=== PATIENT | male | born 1945 | race Caucasian/White ===

== ENCOUNTER → 2017-04-30 | Outpatient (CLI) | payer OTHER ==
[~2017-04-30] VITALS: Ht 182.9 cm; Wt 117.9 kg
[~2017-04-30] MED LIST: ADVAIR HFA 230M12 GM INH; CENTRUM SILVER1 EAC4 PO; GLUCOSAMINE CH1 EAC2 PO; LIPITOR 20 MG T20 M1 PO; LOVAZA1000 MG PO; NABUMETONE 750750 M1 PO
--- NOTE | ~2017-04-30 | S ---
[facility] [place] [address] SURGICAL PATH RPT PROCEDURE Name: THIEN SHETH Room #: REG [facility].#: [id number] Admission: 04/30/17 Date of : 45 Discharge: Report #: [id number] Path Case #: [id number] PATHOLOGY REPORT COLLECTION DATE: 04/30/2017 RECEIVED DATE: 04/30/2017 SUBMITTING PHYS: Dr. Freddie Ignacio OTHER PHYS: Dr. Destinee Lin SPECIMEN(S) RECEIVED: A.Proximal transverse polyp B.Rectal polyp * * * * * * * * * * * * FINAL DIAGNOSIS: A. Polyp, at proximal transverse colon, endoscopic biopsy: - Hyperplastic polyp. - Negative for dysplasia. B. Polyp, rectal polyp anal verge, endoscopic biopsy: - One fragment showing changes compatible with a hyperplastic polyp without dysplasia. - Second fragment showing non-specific reactive changes without dysplasia (please see comment). COMMENT: B: Examination shows reactive rare architecturally abnormal glands within the lamina propria associated with subtle inflammation as well as fibrosis within the lamina propria. There is focal muscularis mucosae present. These changes may represent mucosal prolapse, or a solitary rectal ulcer. Active ulceration is not identified. There is no dysplasia or malignancy present. (IUV:mgr; 05/01/2017) PATHOLOGIST: Bridgett Porras M.D. REPORT ELECTRONICALLY SIGNED BY: Bridgett Porras M.D. DATE/TIME: 05/01/2017 14:51 * * * * * * * * * * * * GROSS PATHOLOGY: A. Received in formalin labeled "Thien Sheth, polyp at proximal transverse colon," is a segment of hall soft tissue measuring 0.5 cm in maximum dimension. The specimen is submitted entirely in cassette A1. B. Received in formalin labeled "Thien Sheth, BX of rectal polyp anal verge," are 2 segments of hall soft tissue measuring 0.6 x 0.2 x 0.2 cm in aggregate dimensions and measuring 0.3 cm each in maximum [address] [place] [address] SURGICAL PATH RPT PROCEDURE Name: THIEN SHETH Room #: REG [facility].#: [id number] Admission: 04/30/17 Date of : 45 Discharge: Report #: [id number] Path Case #: [id number] dimension. The specimen is submitted entirely in cassette B1. (TSD; 04/30/2017) CLINICAL HISTORY: None provided INITIAL CPT CODE(S): A; 98260 B; 98565 Professional services performed by [facility] at [address], [place] [address] Technical services performed by [facility] at [address] [place] [address], [facility] [address] [address]. [facility] [address] [place] [address] PHONE: [phone] DIRECTOR: Golden Tucker M.D. * * * END OF REPORT * * *
--- NOTE | ~2017-04-30 | P ---
[facility] [place] [address] PROCEDURE REPORT Name: SHETHBANDAR MALDONADO Room #: REG [facility]#: [id number] Admission: 04/30/17 Attend Phys: Freddie Ignacio MD Discharge: Date of : 45 Report #: [id number] THIS REPORT FOR: //name// CC: Freddie Lin MD BRIEF HISTORY: The patient is a 72-year-old male who presents for average risk screening colonoscopy. PREOPERATIVE DIAGNOSIS: Average risk screening colonoscopy. POSTOPERATIVE DIAGNOSES: 1. Colon polyp. 2. Rectal polyp. MEDICATIONS: Deep sedation with propofol per anesthesia. SPECIMENS: 1. Proximal transverse colon polyp. 2. Polyp, anal verge. ESTIMATED BLOOD LOSS: 3 mL. PROCEDURE: Colonoscopy to cecum and terminal ileum with snare polypectomy and biopsy. FINDINGS: Prior to propofol sedation, the procedure of colonoscopy discussed with the patient as well as potential risks, benefits, and complications. He indicates he understands and desires to proceed. With the patient in left lateral decubitus position, digital examination was completed, which revealed no abnormalities. Subsequently, the [employer] video colonoscope was introduced in the rectum and advanced under direct vision to the cecum. This was done with minimal difficulty. The cecum was identified by the ileocecal valve and the appendiceal orifice. I was able to visualize the distal segment of terminal ileum, which was inspected and noted to be unremarkable. At that point, scope was slowly withdrawn and careful circumferential views obtained including retroflexing the scope in the ascending colon. Upon slow withdrawal of the scope, the prep was good. The mucosa was within normal limits, normal vascular pattern, and normal light reflex. As we withdrew the scope, the mucosa was within normal limits. In the proximal transverse colon, a 5-mm flat polyp was seen and removed by cold snare polypectomy and recovered. The scope was further withdrawn and no additional neoplastic lesions were seen until the rectum was reached. Otherwise, the colon was within normal limits, normal vascular and normal light reflex. Scope was withdrawn in the rectum, no abnormalities were seen. However, upon retroflexion, a 4-5 mm polyp right at [facility] [address] [place] [address] PROCEDURE REPORT Name: [facility]ANDAR SHETH [facility] [id number] Admission: 04/30/17 Attend Phys: Freddie Ignacio MD Discharge: Date of : 45 Report #: [id number] the anal verge was seen and removed with biopsy. Scope was withdrawn. The patient tolerated the procedure well. CONDITION OF THE PATIENT UPON DISCHARGE: Following procedure, the patient drowsy, arousable and conversant. He will be discharged to home when fully ambulatory. INSTRUCTIONS TO THE PATIENT AND FAMILY AT THE TIME OF DISCHARGE: We will follow up on the path report. If one or both polyps are adenomas, he should return in 5 years. If neither is an adenoma, then 10 years would be indicated. He will return to care of Dr. Destinee Lin and return to see me as needed. Last colonoscopy was more than 10 years ago. Withdrawal time from the cecum was 21 minutes 45 seconds. <ELECTRONICALLY SIGNED> By: Freddie Ignacio MD 05/04/17 1136 [id number] Freddie Ignacio MD /nt
== END | disposition home or self-care (01) ==
LOC: GI 08:38
DX: Z12.11 Encounter for screening for malignant neoplasm of colon (principal); K63.5 Polyp of colon; E78.5 Hyperlipidemia, unspecified; J45.909 Unspecified asthma, uncomplicated; Z87.891 Personal history of nicotine dependence; Z87.442 Personal history of urinary calculi; Z98.890 Other specified postprocedural states; Z98.41 Cataract extraction status, right eye; Z98.42 Cataract extraction status, left eye; Z90.49 Acquired absence of other specified parts of digestive tract; Z79.899 Other long term (current) drug therapy
CPT/HCPCS: 62110; 62900